=== PATIENT | female | born 1960 | race African-American/Black ===

== ENCOUNTER 2018-07-23 15:16 | Emergency (ER) | payer BC ==
[~2018-07-23] VITALS: Ht 167.6 cm; Wt 113.9 kg
[2018-07-23] MEDS ORDERED: IOHEXOL 350 MG/ML 100 ML VIAL. ONE (15:30)
[2018-07-23 15:48] LABS: BASO # 0.1 x10^3/uL (0.0-0.2); BASO % 1 % (0-3); EOS % 1 % (0-3); HEMATOCRIT 39.3 % (36.0-47.0); HEMOGLOBIN 12.7 g/dL (12.0-15.5); LYMPH # 1.8 x10^3/uL (1.0-4.8); LYMPH % 24 % (24-48); MEAN CORPUSCULAR HEMOGLOBIN 27 pg (25-35); MEAN CORPUSCULAR HGB CONC 32 g/dL (31-37); MEAN CORPUSCULAR VOLUME 84 fL (79-100); MONO # 0.5 x10^3/uL (0.0-1.1); MONO % 7 % (0-9); NEUT # 5.1 x10^3uL (1.8-7.7); NEUT % 68 % (31-73); PLATELET COUNT 378 x10^3/uL (140-400); RED BLOOD COUNT 4.66 x10^6/uL (3.50-5.40); RED CELL DISTRIBUTION WIDTH 13.7 % (11.5-14.5); WHITE BLOOD COUNT 7.4 x10^3/uL (4.0-11.0)
[2018-07-23 16:03] LABS: ALBUMIN 3.6 g/dL (3.4-5.0); ALBUMIN/GLOBULIN RATIO 0.8 (1.0-1.7); CREATININE 1.2 mg/dL (0.6-1.0); GFR 45.8; POTASSIUM 4.2 mmol/L (3.5-5.1); TOTAL BILIRUBIN 0.4 mg/dL (0.2-1.0)
[2018-07-23] MEDS: IOHEXOL 350 MG/ML 100 ML VIAL. IV ONE (16:25)
--- NOTE | 2018-07-23 16:25 | RAD ---
EXAM: CT HEAD WITHOUT CONTRAST. HISTORY: Aphasia, facial droop. TECHNIQUE: Computed tomography of the head was performed without intravenous contrast. COMPARISON: None. FINDINGS: There is no intracranial hemorrhage. Early loss of lai-white differentiation is suspected in the left striatum. The ventricles are normal in size and position. The visualized paranasal sinuses appear clear. The orbits are unremarkable. The temporal bones are unremarkable. The calvarium reveals no suspicious lesions. IMPRESSION: 1. No intracranial hemorrhage. 2. Early changes of an ischemic infarct are suspected in the left striatum. These findings were called to Dr. Valentino by Booker West on 07/23/2018 at 3:44 PM. *One or more of the following individualized dose reduction techniques were utilized for this examination: 1. Automated exposure control. 2. Adjustment of the mA and/or kV according to patient size. 3. Use of iterative reconstruction technique. Electronically signed by: Fabiola West MD (07/23/2018 4:22 PM) [facility]
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
[2018-07-23] MEDS ORDERED: ASPIRIN RECTAL 300 MG SUPP. PR ONE (16:30)
--- NOTE | 2018-07-23 16:37 | RAD ---
EXAM: 1. CTA HEAD WITH AND WITHOUT CONTRAST. 2. CTA NECK WITH AND WITHOUT CONTRAST. HISTORY: Aphasia, cerebrovascular accident. TECHNIQUE: Computed tomographic angiography of the head and neck was performed before and after the intravenous administration of iodinated contrast. Three-dimensional reconstructions were also performed. COMPARISON: Today's head CT. FINDINGS: Angiographic findings: There is a common origin of the left common carotid and brachiocephalic arteries, a variant of normal. There is no arch vessel stenosis. Both common carotid arteries course medially into the retropharyngeal territory throughout the majority of their course. Both carotid bifurcations are retropharyngeal. There is <50% stenosis at the origin of both internal carotid arteries secondary to a noncalcified plaquing. The external carotid systems are patent. The left vertebral artery is dominant and the right relatively diminutive. Both are patent with mild atherosclerotic irregularity. The proximal basilar artery is fenestrated. The posterior communicating arteries are the main supply to both posterior cerebral arteries. They are patent more distally. There are moderate atherosclerotic calcifications along both cavernous internal carotid arteries. These result in at least mild stenosis along the right cavernous portion. There is no clear stenosis on the left. No clear middle cerebral artery or branch occlusion is identified bilaterally. There is multifocal moderate to severe stenosis along the right A2 segment. The left anterior cerebral artery is patent. The anterior communicating artery is visualized. Nonangiographic findings: There is no intracranial hemorrhage. An early ischemic infarct is noted in the left caudate head and striatum. The ventricles are normal in size and position. The paranasal sinuses appear clear. The orbits are unremarkable. The temporal bones are unremarkable. Bone windows reveal no suspicious lesions. The lung apices demonstrate no acute abnormality. The parotid glands and submandibular glands are unremarkable. The thyroid gland demonstrates no suspicious lesions. The pharyngeal tonsils are somewhat enlarged bilaterally without a discrete mass. There are no pathologically enlarged lymph nodes. IMPRESSION: 1. Early infarct within the left caudate head and anterior basal ganglia. 2. No middle cerebral artery branch occlusion is appreciated. 3. Mild stenosis along the right cavernous sinus internal carotid artery. 4. Multifocal moderate to severe stenoses along the right A2 segment. 5. Both common carotid arteries and carotid bifurcations are retropharyngeal. 6. <50% stenosis at the origin of both cervical internal carotid arteries. PQRS Compliance Statement - Stenosis calculations for CT, MR and conventional angiography are based upon measurement of the distal ICA diameter in accordance with the NASCET methodology. Stenosis calculations for carotid ultrasound studies are derived from validated velocity criteria which are known to correlate with the NASCET methodology. *One or more of the following individualized dose reduction techniques were utilized for this examination: 1. Automated exposure control. 2. Adjustment of the mA and/or kV according to patient size. 3. Use of iterative reconstruction technique. Electronically signed by: Fabiola West MD (07/23/2018 4:35 PM) [facility]
--- NOTE | 2018-07-23 16:42 | RAD ---
AP chest. HISTORY: Code stroke, achalasia, facial droop AP view was taken of the chest. Lungs are clear. Heart is normal in size without heart failure. There is no effusion. IMPRESSION: 1. No acute chest disease. Electronically signed by: Torsten Hay MD (07/23/2018 4:40 PM) [id number]
[2018-07-23 16:44] LABS: AMPHETAMINE/METHAMPHETAMINE NEG (NEG); BARBITURATES NEG (NEG); BENZODIAZEPINES NEG (NEG); CANNABINOIDS NEG (NEG); COCAINE NEG (NEG); METHADONE NEG (NEG); OPIATES NEG (NEG); PHENCYCLIDINE NEG (NEG)
[2018-07-23] MEDS: ASPIRIN 81 MG TAB.CHEW PO ONE (16:53)
[2018-07-23 17:01] VITALS: BP 155/86
[2018-07-23 17:11] LABS: CLARITY,URINE TURBID; COLOR,URINE YELLOW; GLUCOSE,URINE >=1000 mg/dL (NEG)
[2018-07-23 17:12] LABS: BACTERIA,URINE MOD /HPF (0-FEW); BILIRUBIN,URINE NEG (NEG); NITRITE,URINE POS (NEG); SQUAMOUS EPITHELIAL CELL,UR FEW /LPF; UROBILINOGEN,URINE 0.2 mg/dL (0.2 mg/dL)
[2018-07-23] MEDS ORDERED: cefTRIAXone SODIUM 1 GM VIAL ONE (17:18)
[2018-07-23] MEDS ORDERED: IV NORMAL SALINE 50ML 50 ML ONE (17:19)
== END 2018-07-23 18:55 | disposition short-term general hospital (02) ==
LOC: ER 15:16
DX: I63.9 Cerebral infarction, unspecified (principal); R47.01 Aphasia; R29.810 Facial weakness; N39.0 Urinary tract infection, site not specified
CPT/HCPCS: 36415; 51702; 70450; 70496; 70498; 71045; 80053; 80307; 81001; 82947; 84484; 85025; 85610; 85730; 87086; 96365; 99285; G0480; J0696; Q9967

== ENCOUNTER 2018-07-31 08:30 | Emergency (ER) | payer BC ==
[~2018-07-31] VITALS: Ht 157.5 cm; Wt 107.0 kg
[2018-07-31] MEDS ORDERED: IV NORMAL SALINE 1,000ML 1,000 ML IV SCH (08:45)
--- NOTE | 2018-07-31 08:53 | PHYS DOC ---
Past History Past Medical History: No Pertinent History Past Surgical History: No Surgical History Smoking: Non-smoker Alcohol Use: None Drug Use: None Adult General Chief Complaint Chief Complaint: NEURO SYMPTOMS/DEFICITS HPI HPI Patient is a 58 year old female who presents with complaint of right-sided weak ness. Patient woke this morning with right-sided weakness and slurred speech. The patient was seen in the emergency department on July 23, 2018 and diagnosed with an acute left-sided basal ganglia CVA. Patient transferred to [place] for further care. The patient was released on July 25, 2018. According to the patient and the patient's , the patient has been waking up with right- sided weakness daily which seems to improve after patient has eaten breakfast. The patient had not been treated for any conditions until her most recent hospital stay. Was just started on blood pressure and diabetes medication. Patient states currently she is not having any symptoms of weakness. Currently denies pain. States that she has not noticed any increased weakness in her right upper and lower extremity since her stroke. Patient patient has been her concern about the daily occurrence of strokelike symptoms and thus came to the emergency department this morning for evaluation. Review of Systems Review of Systems Constitutional: Denies fever or chills [] Eyes: Denies change in visual acuity, redness, or eye pain [] HENT: Denies nasal congestion or sore throat [] Respiratory: Denies cough or shortness of breath [] Cardiovascular: Denies chest pain or edema[] GI: Denies abdominal pain, nausea, vomiting, bloody stools or diarrhea [] : Denies dysuria or hematuria [] Musculoskeletal: Denies back pain or joint pain [] Integument: Denies rash or skin lesions [] Neurologic: Right-sided weakness, slurred speech, denies sensory changes [] All other systems were reviewed and found to be within normal limits, except as documented in this note. Current Medications Current Medications Current Medications Medications (Trade) Dose Ordered Sig/Cristina Start Time Stop Time Status Last Admin Dose Admin Sodium Chloride 1,000 ml @ 125 mls/hr Q8H 07/31/18 08:45 07/31/18 16:44 UNV Allergies Allergies Allergies Coded Allergies Type Severity Reaction Last Updated Verified No Known Drug Allergies 07/23/18 No Physical Exam Physical Exam Constitutional: Well developed, well nourished, no acute distress, non-toxic appearance. [] HENT: Normocephalic, atraumatic, bilateral external ears normal, oropharynx moist, no oral exudates, nose normal. [] Eyes: PERRLA, EOMI, conjunctiva normal, no discharge. [] Neck: Normal range of motion, no tenderness, supple, no stridor. [] Cardiovascular:Heart rate regular rhythm, no murmur [] Lungs & Thorax: Bilateral breath sounds clear to auscultation [] Abdomen: Bowel sounds normal, soft, no tenderness, no masses, no pulsatile masses. [] Skin: Warm, dry, no erythema, no rash. [] Back: No tenderness, no CVA tenderness. [] Extremities: No tenderness, no cyanosis, no clubbing, ROM intact, no edema. [] Neurologic: Alert and oriented X 3, normal motor function, normal sensory function, no focal deficits noted. [] Psychologic: Affect normal, judgement normal, mood normal. [] Current Patient Data Vital Signs Vital Signs Date Time Temp Pulse Resp B/P (MAP) Pulse Ox O2 Delivery O2 Flow Rate FiO2 07/31/18 09:15 98.3 97 22 97 Room Air 07/31/18 08:40 141/90 (107) Lab Results Laboratory Tests Test 07/31/18 09:06 White Blood Count 6.9 x10^3/uL Red Blood Count 4.84 x10^6/uL Hemoglobin 13.2 g/dL Hematocrit 40.1 % Mean Corpuscular Volume 83 fL Mean Corpuscular Hemoglobin 27 pg Mean Corpuscular Hemoglobin Concent 33 g/dL Red Cell Distribution Width 13.5 % Platelet Count 443 x10^3/uL Neutrophils (%) (Auto) 71 % Lymphocytes (%) (Auto) 22 % Monocytes (%) (Auto) 6 % Eosinophils (%) (Auto) 0 % Basophils (%) (Auto) 1 % Neutrophils # (Auto) 4.9 x10^3uL Lymphocytes # (Auto) 1.5 x10^3/uL Monocytes # (Auto) 0.4 x10^3/uL Eosinophils # (Auto) 0.0 x10^3/uL Basophils # (Auto) 0.0 x10^3/uL Sodium Level 138 mmol/L Potassium Level 4.2 mmol/L Chloride Level 100 mmol/L Carbon Dioxide Level 28 mmol/L Anion Gap 10 Blood Urea Nitrogen 19 mg/dL Creatinine 1.1 mg/dL Estimated GFR (Cockcroft-Gault) 61.3 BUN/Creatinine Ratio 17 Glucose Level 79 mg/dL Calcium Level 10.1 mg/dL Magnesium Level 1.6 mg/dL Total Bilirubin 0.3 mg/dL Aspartate Amino Transf (AST/SGOT) 38 U/L Alanine Aminotransferase (ALT/SGPT) 29 U/L Alkaline Phosphatase 78 U/L Total Protein 8.2 g/dL Albumin 3.6 g/dL Albumin/Globulin Ratio 0.8 Current Medications Medications (Trade) Dose Ordered Sig/Cristina Route PRN Reason Start Time Stop Time Status Last Admin Dose Admin Sodium Chloride 1,000 ml @ 125 mls/hr Q8H IV 07/31/18 08:45 07/31/18 16:44 07/31/18 09:42 EKG EKG Interpreted by me: Heart rate 86, sinus rhythm, leftward axis, no acute ST/T- wave abnormalities present[] Radiology/Procedures Radiology/Procedures [place] [id number] IMAGING REPORT Signed PATIENT: DARRELL KYLE ACCOUNT: [id number] : 1960 LOCATION: ER AGE: 58 SEX: F EXAM STATUS: REG ER ORD. PHYSICIAN: CHARLETTE MEDINA MD REASON: right sided weakness this morning, currently resolved, recent CVA PROCEDURE: CT HEAD WO CONTRAST CT HEAD WO CONTRAST Clinical indications: Right-sided weakness this morning. Currently result. Recent CVA. COMPARISON: July 23, 2018. Technique: Noncontrast axial cross sectional scanning of the head was performed. PQRS compliance Statement One or more of the following individualized dose reduction techniques were utilized for this study: 1. Automated exposure control 2. Adjustment of the mA and/or kV according to patient size 3. Use of iterative reconstruction technique Findings: No acute intracranial hemorrhage or midline shift or mass-effect or hydrocephalus or extra-axial fluid collection is seen. There is an new finding of moderate edema involving the head of the caudate nucleus and anterior limb of the internal capsule in the anterior basal ganglia and the left side. This is consistent with a new infarct. No skull fracture or pneumocephalus is seen. No opacification of the mastoid sinuses or the paranasal sinuses is seen. The maxillary sinuses are not completely seen in this study. Impression: No acute intracranial hemorrhage is seen. New infarct on the left side as discussed above. Note-this critical result was discussed with the emergency room physician Dr. Charlette Medina at 9:24 AM on July 31, 2018. He stated that the symptoms are such that this should be considered a subacute infarct clinically. Electronically signed by: Radha Melo MD (07/31/2018 9:27 AM) [place] [id number] DICTATED AND SIGNED BY: RADHA MELO MD DATE: 07/31/18926 CC: CHARLETTE MEDINA MD; PCP,NO ~ [] Course & Med Decision Making Course & Med Decision Making Pertinent Labs and Imaging studies reviewed. (See chart for details) CT imaging was obtained in the emergency department. I spoke with Dr. Melo at 923 regarding critical findings of new CVA. Given symptoms were present upon awakening and have resolved at this time, this is consistent with a subacute infarct. Patient was noted to have evidence of mild aphasia during NIH scoring, giving her an NIH of 1 currently. The patient is not a candidate for use of TPA given recent infarct and low NIH score. Aspirin was withheld as patient took a full strength aspirin this morning prior to arrival. After speaking with the patient and family, we have agreed the patient will need to be transferred to [facility] for further evaluation and care. I spoke with Dr. Simons who will accept care of patient in hospital. Addendum at 1005: Despite accepting doctor at [facility], the nursing supervisor partial denture department call back and reported that there were no available beds for patient to be admitted at [facility]. Because of this, they were unable to accept the patient for transfer. After speaking with family, they agreed on pursuing transfer to [facility]. 1026: Spoke with Dr. Herron, neurologist, and Dr. Hancock, transfer physician, at [facility]. They have agreed to accept patient for transfer. Spoke with family regarding acceptance at [facility] and they are in agreement at time of disposition. Patient will be transferred by ground ambulance for further care.[] Dragon Disclaimer Dragon Disclaimer This electronic medical record was generated, in whole or in part, using a voice recognition dictation system. Departure Departure: Impression: Primary Impression: CVA (cerebral vascular accident) Disposition: 02 XFER SHT-TRM HOSP Condition: STABLE Referrals: PCP,NO (PCP) Problem Qualifiers Primary Impression: CVA (cerebral vascular accident) CVA mechanism: unspecified Qualified Codes: I63.9 - Cerebral infarction, unspecified CHARLETTE MEDINA MD Jul 31, 2018 08:53
--- NOTE | 2018-07-31 09:29 | RAD ---
CT HEAD WO CONTRAST Clinical indications: Right-sided weakness this morning. Currently result. Recent CVA. COMPARISON: July 23, 2018. Technique: Noncontrast axial cross sectional scanning of the head was performed. PQRS compliance Statement One or more of the following individualized dose reduction techniques were utilized for this study: 1. Automated exposure control 2. Adjustment of the mA and/or kV according to patient size 3. Use of iterative reconstruction technique Findings: No acute intracranial hemorrhage or midline shift or mass-effect or hydrocephalus or extra-axial fluid collection is seen. There is an new finding of moderate edema involving the head of the caudate nucleus and anterior limb of the internal capsule in the anterior basal ganglia and the left side. This is consistent with a new infarct. No skull fracture or pneumocephalus is seen. No opacification of the mastoid sinuses or the paranasal sinuses is seen. The maxillary sinuses are not completely seen in this study. Impression: No acute intracranial hemorrhage is seen. New infarct on the left side as discussed above. Note-this critical result was discussed with the emergency room physician Dr. Dennis Medina at 9:24 AM on July 31, 2018. He stated that the symptoms are such that this should be considered a subacute infarct clinically. Electronically signed by: Gray Melo MD (07/31/2018 9:27 AM) [id number]
[2018-07-31 09:30] LABS: ALBUMIN 3.6 g/dL (3.4-5.0); ALBUMIN/GLOBULIN RATIO 0.8 (1.0-1.7); CALCIUM 10.1 mg/dL (8.5-10.1); CREATININE 1.1 mg/dL (0.6-1.0); GFR 61.3; MAGNESIUM 1.6 mg/dL (1.8-2.4); POTASSIUM 4.2 mmol/L (3.5-5.1); TOTAL BILIRUBIN 0.3 mg/dL (0.2-1.0); TOTAL PROTEIN 8.2 g/dL (6.4-8.2)
[2018-07-31 09:48] LABS: BASO % 1 % (0-3); EOS % 0 % (0-3); HEMATOCRIT 40.1 % (36.0-47.0); HEMOGLOBIN 13.2 g/dL (12.0-15.5); LYMPH # 1.5 x10^3/uL (1.0-4.8); LYMPH % 22 % (24-48); MEAN CORPUSCULAR HEMOGLOBIN 27 pg (25-35); MEAN CORPUSCULAR HGB CONC 33 g/dL (31-37); MEAN CORPUSCULAR VOLUME 83 fL (79-100); MONO # 0.4 x10^3/uL (0.0-1.1); MONO % 6 % (0-9); NEUT # 4.9 x10^3uL (1.8-7.7); NEUT % 71 % (31-73); PLATELET COUNT 443 x10^3/uL (140-400); RED BLOOD COUNT 4.84 x10^6/uL (3.50-5.40); RED CELL DISTRIBUTION WIDTH 13.5 % (11.5-14.5); WHITE BLOOD COUNT 6.9 x10^3/uL (4.0-11.0)
[2018-07-31 11:48] VITALS: BP 125/82
--- NOTE | 2018-08-01 07:17 | EKG ---
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
--- NOTE | 2018-08-01 07:25 | EKG ---
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 (Measurements might be questionable) RI6.01 No previous ECG available for comparison
== END 2018-07-31 12:15 | disposition short-term general hospital (02) ==
LOC: ER 08:30
DX: I63.9 Cerebral infarction, unspecified (principal); R53.1 Weakness; R47.81 Slurred speech
CPT/HCPCS: 36415; 70450; 80053; 82947; 83735; 85025; 85610; 85730; 93005; 99285; J7030

== ENCOUNTER 2018-08-13 15:51 | Inpatient (IN) | payer BC ==
[~2018-08-13] VITALS: Ht 157.5 cm; Wt 104.5 kg
[2018-08-13] MEDS ORDERED: IV NORMAL SALINE 500ML 500 ML IV SCH (16:00)
--- NOTE | 2018-08-13 16:00 | PHYS DOC ---
Past History Past Medical History: CVA, Diabetes Past Surgical History: No Surgical History Smoking: Non-smoker Alcohol Use: None Drug Use: None Adult General Chief Complaint Chief Complaint: SYNCOPE HPI HPI Patient is a 58-year-old female presents after a syncopal episode. Patient was sitting, talking with family when she experienced this. She denies any chest pain or palpitations. EMS notes that her blood pressure decreased during o rthostatic vital signs. Her initial blood pressure was 120/80, and it went to 104/72 when standing. She notes that she's had decreased oral intake over the past 4 days., No appetite. No nausea or vomiting. No dysuria. No fever. No recent work in the heat.[] Review of Systems Review of Systems Constitutional: Denies fever or chills [] Eyes: Denies change in visual acuity, redness, or eye pain [] HENT: Denies nasal congestion or sore throat [] Respiratory: Denies cough or shortness of breath [] Cardiovascular: No chest pain or palpitations[] GI: Denies abdominal pain, nausea, vomiting, bloody stools or diarrhea [] : Denies dysuria or hematuria [] Musculoskeletal: Denies back pain or joint pain [] Integument: Denies rash or skin lesions [] Neurologic: Denies headache, focal weakness or sensory changes [] Endocrine: Denies polyuria or polydipsia [] All other systems were reviewed and found to be within normal limits, except as documented in this note. Allergies Allergies Allergies Coded Allergies Type Severity Reaction Last Updated Verified No Known Drug Allergies 07/23/18 No Physical Exam Physical Exam Constitutional: Well developed, well nourished, no acute distress, non-toxic appearance. [] HENT: Normocephalic, atraumatic, bilateral external ears normal, oropharynx moist, no oral exudates, nose normal. [] Eyes: PERRLA, EOMI, conjunctiva normal, no discharge. [] Neck: Normal range of motion, no tenderness, supple, no stridor. [] Cardiovascular:Heart rate regular rhythm, no murmur [] Lungs & Thorax: Bilateral breath sounds clear to auscultation [] Abdomen: Bowel sounds normal, soft, no tenderness, no masses, no pulsatile masses. [] Skin: Warm, dry, no erythema, no rash. [] Back: No tenderness, no CVA tenderness. [] Extremities: No tenderness, no cyanosis, no clubbing, ROM intact, no edema. [] Neurologic: Alert and oriented X 3, normal motor function, normal sensory function, no focal deficits noted. [] Psychologic: Affect normal, judgement normal, mood normal. [] EKG EKG EKG shows a sinus rhythm at 90 bpm, left axis at -20, QTC 436 ms, no ST elevations. Compared with EKG of 07/31/2018, no acute changes are noted. Interp reted by me at 1638.[] Radiology/Procedures Radiology/Procedures PROCEDURE: PORTABLE CHEST 1V Exam performed: One view chest. Indication: Syncope Date of Service: 08/13/2018 3:55 PM Comparison: One view chest from 07/23/2018. Single AP upright portable view chest findings: Cardiomediastinal silhouette is within limits of normal. No acute infiltrates, effusion or pneumothorax is detected. The bony structures are normal. Impression: No acute cardiopulmonary process is detected. [] Course & Med Decision Making Course & Med Decision Making Pertinent Labs and Imaging studies reviewed. (See chart for details) ED course and medical decision making: Patient arrived, was placed in bed, and tolerated exam well. She was started on IV fluids. Her orthostatic vital signs are noted to be 140/66 with a heart rate of 104 while sitting, and a heart rate of 129 and blood pressure 106/73 when standing. Believe this to be due to decreased appetite along with her worsening creatinine when compared with last month. Urinalysis is pending at the time of this dictation. Consultation was made with the hospitalist service for admission for continued IV hydration as well as further monitoring. Do not see any evidence of this being an acute stroke syndrome. No evidence of an acute coronary syndrome at this time.[] Dragon Disclaimer Dragon Disclaimer This electronic medical record was generated, in whole or in part, using a voice recognition dictation system. 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
--- NOTE | 2018-08-13 16:21 | RAD ---
Exam performed: One view chest. Indication: Syncope Date of Service: 08/13/2018 3:55 PM Comparison: One view chest from 07/23/2018. Single AP upright portable view chest findings: Cardiomediastinal silhouette is within limits of normal. No acute infiltrates, effusion or pneumothorax is detected. The bony structures are normal. Impression: No acute cardiopulmonary process is detected. Electronically signed by: Regla Varghese MD (08/13/2018 4:19 PM) [facility]
[2018-08-13 16:22] LABS: BASO # 0.1 x10^3/uL (0.0-0.2); BASO % 1 % (0-3); EOS % 0 % (0-3); HEMATOCRIT 34.7 % (36.0-47.0); LYMPH # 2.4 x10^3/uL (1.0-4.8); LYMPH % 23 % (24-48); MEAN CORPUSCULAR HEMOGLOBIN 27 pg (25-35); MEAN CORPUSCULAR HGB CONC 32 g/dL (31-37); MEAN CORPUSCULAR VOLUME 85 fL (79-100); MONO # 0.7 x10^3/uL (0.0-1.1); MONO % 6 % (0-9); NEUT # 7.5 x10^3uL (1.8-7.7); NEUT % 70 % (31-73); PLATELET COUNT 435 x10^3/uL (140-400); RED BLOOD COUNT 4.09 x10^6/uL (3.50-5.40); WHITE BLOOD COUNT 10.7 x10^3/uL (4.0-11.0)
[2018-08-13 16:42] LABS: ALBUMIN 3.6 g/dL (3.4-5.0); ALBUMIN/GLOBULIN RATIO 0.8 (1.0-1.7); CREATININE 1.5 mg/dL (0.6-1.0); GFR 42.9; POTASSIUM 4.1 mmol/L (3.5-5.1); TOTAL BILIRUBIN 0.4 mg/dL (0.2-1.0); TOTAL PROTEIN 8.3 g/dL (6.4-8.2)
[2018-08-13] MEDS: IV NORMAL SALINE 1,000ML 1,000 ML IV SCH (17:36)
[2018-08-13] MEDS ORDERED: ACETAMINOPHEN 325 MG TABLET PO PRN (17:45)
[2018-08-13] MEDS ORDERED: ONDANSETRON PF 4 MG/2 ML VIAL. IV PRN (17:45)
[2018-08-13] MEDS ORDERED: DEXTROSE 50% 25 GM / 50ML DISP.SYRIN. IV PRN (18:15)
[2018-08-13] MEDS ORDERED: ATOR20TA58 PO (18:36)
[2018-08-13] MEDS ORDERED: GLYB5TAB3 PO (18:36)
[2018-08-13] MEDS ORDERED: LISI1TAB3 PO (18:36)
[2018-08-13] MEDS ORDERED: ENAL2.5T PO (18:36)
[2018-08-13] MEDS ORDERED: METF500T16 PO (18:36)
[2018-08-13] MEDS ORDERED: CLOP75TA PO (18:36)
[2018-08-13] MEDS ORDERED: ASPI325T8 PO (18:36)
[2018-08-13 18:43] VITALS: BP 125/64
[2018-08-13] MEDS: glyBURIDE 5 MG TABLET PO SCH (18:51)
[2018-08-13] MEDS: metFORMIN 500 MG TABLET PO SCH (18:52)
[2018-08-13] MEDS: ATORVASTATIN CALCIUM 20 MG TABLET PO SCH (21:05)
[2018-08-13 23:00] VITALS: BP 147/70
[2018-08-14 06:00] VITALS: BP 175/74
[2018-08-14 06:00] LABS: BASO # 0.1 x10^3/uL (0.0-0.2); BASO % 1 % (0-3); EOS # 0.1 x10^3/uL (0.0-0.7); EOS % 1 % (0-3); HEMATOCRIT 29.1 % (36.0-47.0); HEMOGLOBIN 9.4 g/dL (12.0-15.5); LYMPH # 3.1 x10^3/uL (1.0-4.8); LYMPH % 35 % (24-48); MEAN CORPUSCULAR HEMOGLOBIN 27 pg (25-35); MEAN CORPUSCULAR HGB CONC 32 g/dL (31-37); MEAN CORPUSCULAR VOLUME 85 fL (79-100); MONO # 0.8 x10^3/uL (0.0-1.1); MONO % 9 % (0-9); NEUT # 4.7 x10^3uL (1.8-7.7); NEUT % 54 % (31-73); PLATELET COUNT 395 x10^3/uL (140-400); RED BLOOD COUNT 3.43 x10^6/uL (3.50-5.40); RED CELL DISTRIBUTION WIDTH 13.7 % (11.5-14.5); WHITE BLOOD COUNT 8.8 x10^3/uL (4.0-11.0)
[2018-08-14 06:10] LABS: CALCIUM 9.2 mg/dL (8.5-10.1); CREATININE 1.2 mg/dL (0.6-1.0); GFR 55.4; POTASSIUM 3.9 mmol/L (3.5-5.1)
[2018-08-14] MEDS: IV NORMAL SALINE 1,000ML 1,000 ML IV SCH ×2 (06:41→09:36)
[2018-08-14] MEDS: metFORMIN 500 MG TABLET PO SCH ×2 (07:53→17:00)
[2018-08-14] MEDS: glyBURIDE 5 MG TABLET PO SCH (07:53)
[2018-08-14] MEDS: CLOPIDOGREL BISULFATE 75 MG TABLET PO SCH (07:54)
[2018-08-14] MEDS ORDERED: ASPIRIN 325 MG TABLET PO SCH (09:00)
[2018-08-14] MEDS ORDERED: hydroCHLOROthiazide 12.5 MG CAPSULE PO SCH (09:00)
[2018-08-14] MEDS ORDERED: LISINOPRIL 10 MG TABLET PO SCH (09:00)
[2018-08-14] MEDS ORDERED: ENALAPRIL MALEATE 2.5 MG PO SCH (09:00)
[2018-08-14 10:29] VITALS: BP 142/62
[2018-08-14] MEDS: ASPIRIN ENTERIC COATED 81 MG TABLET.DR. PO SCH (10:30)
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
[2018-08-14 13:56] VITALS: BP 119/77
[2018-08-14 13:57] VITALS: BP_SYST 121; BP_SYST 132; BP_DIAS 76; BP_DIAS 78
[2018-08-14 19:15] VITALS: BP 128/68
[2018-08-14] MEDS: ATORVASTATIN CALCIUM 20 MG TABLET PO SCH (20:45)
[2018-08-14 23:05] VITALS: BP 156/78
--- NOTE | 2018-08-14 23:40 | PN ---
DATE: 08/14/2018 SUBJECTIVE: The patient is resting, slightly propped up in bed, in no apparent respiratory distress. She is awake, alert, has had no further syncopal episode; however, her main complaint is anorexia and poor appetite. OBJECTIVE: GENERAL: On examining her this morning, she looked pale, but no jaundice, cyanosis or thyromegaly. No jugular venous distension. No limb edema. VITAL SIGNS: Her heart rate was 76, blood pressure was 132/78, temperature was 98.3, respiratory rate was 20 and oxygen saturation was 98%. HEAD, EYES, EARS, NOSE AND THROAT: Normocephalic, atraumatic. NECK: Supple. HEART: Showed normal first and second heart sounds. No gallop, rub or murmur. CHEST: Clear to auscultation. No crepitation or rhonchi. ABDOMEN: Distended, soft, nontender. NEUROLOGIC: She was awake, alert, responding appropriately. All cranial nerves intact. She moves extremities without difficulty. Her intake over the last 24 hours was 2714, no output was recorded. LABORATORY DATA: As of this morning, her serum sodium was 139, potassium 3.9, chloride 103, bicarbonate 28, anion gap of 8, BUN 28, creatinine 1.2, estimated GFR was 55 mL per minute. Her glucose was 124, calcium was 9.2. Total bilirubin, AST, ALT, alkaline phosphatase were normal. She had 2 sets of cardiac enzymes that were negative. Her white cell count was 8800, hemoglobin 9.4, hematocrit 29, MCV 85 and platelet count of 395,000. ASSESSMENT: 1. Syncopal episode, likely due to dehydration and poor appetite. 2. Acute kidney injury, improving. Her creatinine came down from 1.5 to 1.2. 3. Type 2 diabetes seems to be well controlled. PLAN: To continue the IV fluid. We offered to start her on Marinol, but the patient reluctant to start it. We will continue with IV fluids tonight and repeat her labs tomorrow and we will decide on further management accordingly. REANNA SPANGLER MD DR: VENUS/eun JOB#: [id number] / [id number]
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
[2018-08-15 06:10] VITALS: BP 144/75
[2018-08-15 06:51] LABS: HEMOGLOBIN 9.3 g/dL (12.0-15.5); RED BLOOD COUNT 3.41 x10^6/uL (3.50-5.40); RED CELL DISTRIBUTION WIDTH 13.7 % (11.5-14.5); WHITE BLOOD COUNT 9.6 x10^3/uL (4.0-11.0)
[2018-08-15 07:04] LABS: ALBUMIN/GLOBULIN RATIO 0.8 (1.0-1.7); CALCIUM 9.3 mg/dL (8.5-10.1); CREATININE 0.9 mg/dL (0.6-1.0); GFR 77.3; POTASSIUM 3.6 mmol/L (3.5-5.1); TOTAL BILIRUBIN 0.3 mg/dL (0.2-1.0); TOTAL PROTEIN 6.9 g/dL (6.4-8.2)
[2018-08-15] MEDS ORDERED: DRONABINOL 2.5 MG CAPSULE PO SCH ×2 (07:30→17:00)
[2018-08-15] MEDS: ASPIRIN ENTERIC COATED 81 MG TABLET.DR. PO SCH ×2 (08:00→08:07)
[2018-08-15] MEDS: CLOPIDOGREL BISULFATE 75 MG TABLET PO SCH ×2 (08:07→08:13)
[2018-08-15] MEDS: LISINOPRIL 5 MG TABLET. PO SCH (08:07)
[2018-08-15 11:22] VITALS: BP 140/70
[2018-08-15 16:15] VITALS: BP 146/65
[2018-08-15] MEDS: DRONABINOL 2.5 MG CAPSULE PO SCH (17:02)
[2018-08-15 19:48] VITALS: BP 135/70
[2018-08-15] MEDS: ATORVASTATIN CALCIUM 20 MG TABLET PO SCH (20:53)
--- NOTE | 2018-08-16 04:08 | PN ---
DATE: 08/15/2018 SUBJECTIVE: The patient denies any new medical or neurological complaints. She has not had any headaches, visual disturbances, or fainting spells. She has been ups and downs walking outside the room without any dizziness. She denies headaches or visual disturbances. OBJECTIVE: GENERAL: Obese female, not in acute distress. She weighs 103.9 pounds. VITAL SIGNS: Blood pressure 144/75, respiratory rate 18, pulse is 77, temperature 97.6, oxygen saturation 96% on room air. HEENT: Normocephalic, atraumatic, otherwise unremarkable. NECK: Supple. Negative for carotid bruit, lymphadenopathy or thyromegaly. LUNGS: Clear to A and P. CARDIOVASCULAR: Regular rate and rhythm, normal S1, S2. There is no S3, S4, or murmur. ABDOMEN: Soft. Bowel sounds positive. EXTREMITIES: Negative for cyanosis, clubbing or pitting edema. NEUROLOGICAL EXAM: Mental Status: The patient is alert and oriented x3. Speech is fluent. There is no language dysfunction. Cranial nerves are intact. No focal motor or sensory deficit. Deep tendon reflexes were symmetric and active without pathologic responses. Gait and coordination are normal. LABORATORY DATA: CBC revealed white blood cells of 9.6 thousand, hemoglobin 9.3, hematocrit 29, platelet count 388. Chemistry revealed sodium of 138, potassium 3.6, chloride 103, CO2 28, BUN 12, creatinine 0.9, glucose 64. Liver enzymes are normal. IMPRESSION: 1. Syncope, probably due to severe dehydration -- no recurrence. 2. Multiple medical problems include urinary tract infections, obesity, renal insufficiency due to dehydration, hypertension, anemia, diabetes mellitus and history of stroke. The patient is neurologically stable. RECOMMENDATIONS: Continue with current management initiated by . ____. M Pola HERNANDEZ MD DR: SYLWIA/eun JOB#: [id number] / [id number]
--- NOTE | 2018-08-16 04:40 | PN ---
DATE: 08/15/2018 SUBJECTIVE: The patient is resting slightly propped up in bed, in no apparent distress, awake, alert, denied any complaints. Her appetite, she said that she is eating more. We did start her on Marinol yesterday and her glyburide was discontinued; however, she continued to have low blood sugar. In fact, her blood sugar this morning was only 64. PHYSICAL EXAMINATION: GENERAL: When I examined her, she looked pale, but no jaundice, cyanosis, or thyromegaly. No jugular venous distension. No limb edema. VITAL SIGNS: Her heart rate was 77, blood pressure was 144/75, temperature was 97.6, respiratory rate was 18, and oxygen saturation was 96%. HEAD, EYES, EARS, NOSE, AND THROAT: Showed normocephalic, atraumatic. NECK: Supple. HEART: Showed normal first and second heart sounds. No gallop, rub, or murmur. CHEST: Clear to auscultation. No crepitation or rhonchi. ABDOMEN: Distended, soft, nontender. NEUROLOGIC: She is awake, alert, responding appropriately. All cranial nerves intact. She moves extremities without difficulty. She has no neurological deficit from her recent left-sided basal ganglia infarct. Her intake over the last 24 hours was 2714, output was recorded. LABORATORY DATA: Her lab work this morning showed a serum sodium 138, potassium 3.6, chloride 103, bicarbonate 28, anion gap of 7, BUN 12, creatinine 0.9, estimated GFR was 77 mL per minute. Her glucose was 64, calcium was 9.3. Total bilirubin, AST, ALT, alkaline phosphatase were normal. Total protein was 6.9, albumin 3. Her white cell count was 9.6, hemoglobin 9.3, hematocrit 29, MCV 85, and platelet count of 388,000. Her sedimentation rate was 60 mm per hour. Her nasal screen for MRSA by PCR was negative. ASSESSMENT: 1. Syncopal episode, likely dehydration, poor appetite. 2. Acute kidney injury, improving. Her creatinine is down from 1.5 to 0.9. 3. Type 2 diabetes mellitus with prolonged hypoglycemia likely due to oral hypoglycemic agent that was discontinued. PLAN: My plan is as long as the patient continued to have low blood sugar we will observe her for another 24 hours and probably discharge her only on metformin and maybe a small dose of Amaryl instead of Glyburide. REANNA SPANGLER MD DR: VENUS/eun JOB#: [id number] / [id number]
[2018-08-16 06:05] VITALS: BP 145/85
[2018-08-16 06:40] LABS: CALCIUM 9.2 mg/dL (8.5-10.1); CREATININE 0.8 mg/dL (0.6-1.0); GFR 88.5; POTASSIUM 4.2 mmol/L (3.5-5.1)
[2018-08-16] MEDS: ASPIRIN ENTERIC COATED 81 MG TABLET.DR. PO SCH (08:03)
[2018-08-16] MEDS: CLOPIDOGREL BISULFATE 75 MG TABLET PO SCH (08:03)
[2018-08-16] MEDS: LISINOPRIL 5 MG TABLET. PO SCH (08:03)
[2018-08-16] MEDS: DRONABINOL 2.5 MG CAPSULE PO SCH (08:03)
[2018-08-16 08:20] VITALS: BP 140/81
[2018-08-16 11:00] VITALS: BP 145/83
--- NOTE | 2018-08-17 00:23 | DS ---
DATE OF DISCHARGE: 08/16/2018 HISTORY OF PRESENT ILLNESS: The patient is a 58-year-old -[place]ong[place] female patient who was admitted on 08/13/2018 with syncopal episode. She apparently was sitting and talking to family and apparently had had a syncopal episode. Emergency medical personnel stated that her blood pressure decreased on standing from 120 to 104 and she noted that she has had decreased oral intake over the last 4 days with poor appetite, but no nausea, no vomiting, no diarrhea, no fever or recent work in the heat. She was evaluated in the Emergency Room and was found to have syncope, likely due to dehydration and acute renal insufficiency as well as diabetes. She was treated with IV fluid and we held all her antihypertensive medications. Her kidney function has gradually improved and her creatinine came down from 1.5 to 0.8. She was on metformin and glyburide and apparently her blood sugar had been low and in fact when she came was only 34 and her blood sugar has been steadily in the low side and probably because of impaired kidney function and longer acting glyburide that made worse by the fact that her kidney function has worsened, so we held her metformin and her oral hypoglycemic agent and had no further episode of syncope, dizziness or lightheadedness. Her blood sugar has improved today. In fact, her blood sugar this morning was 161 and this afternoon was 132 and her intake has gradually improved. We did start her on Marinol and a decision was made to discharge her home to continue with Amaryl 1 mg only, continue with Marinol 2.5 mg twice a day and I discontinued her enalapril, continue with lisinopril as well as hydrochlorothiazide. PHYSICAL EXAMINATION: GENERAL: When I saw her this afternoon, she looked well and was clearly in no apparent respiratory distress. There is no pallor, jaundice or cyanosis. No lymphadenopathy. No thyromegaly. No jugular venous distension. No lower limb edema. VITAL SIGNS: Her heart rate was 83, blood pressure 140/81, temperature was 97.7, respiratory rate was 16, and oxygen saturation was 96%. HEAD, EYES, EARS, NOSE AND THROAT: Showed normocephalic, atraumatic. NECK: Supple. HEART: Showed normal first and second heart sounds. No gallop, rub or murmur. CHEST: Clear to auscultation. No crepitation or rhonchi. ABDOMEN: Distended, soft, nontender. No guarding or rigidity. No organomegaly. All hernial orifice intact. Bowel sounds normal. NEUROLOGIC: She was awake, alert, responding appropriately. All other cranial nerves intact. She moves extremities without difficulty. She ambulates without assistance or assistive devices. Her intake over the last 24 hours was 3200, no output was recorded. LABORATORY DATA: Her lab work this morning showed a white cell count 9600, hemoglobin 9, hematocrit 29, MCV 85 and platelet count 388,000. Her serum sodium was 138, potassium 4.2, chloride 104, bicarbonate 26, anion gap of 8, BUN 10, creatinine 0.8, estimated GFR was 88 mL per minute. Her glucose 131, calcium was 9.2. Her nasal screen for MRSA PCR was negative. DISCHARGE MEDICATIONS: She was discharged home to continue on aspirin 325 mg once a day, atorvastatin calcium 20 mg at bedtime, Plavix 75 mg once a day, lisinopril/hydrochlorothiazide 10/12.5 one tablet once a day, metformin 500 mg twice a day and Amaryl 1 mg once a day as well as Marinol 2.5 mg twice a day. FINAL DISCHARGE DIAGNOSES: Acute kidney injury, improved with her creatinine came down from 1.5 to 0.8; syncopal episode, likely dehydration with resultant acute kidney injury; persistent hypoglycemia likely due to long-acting oral hypoglycemic agent; metformin and glyburide that was discontinued. Other medical problems include hypertension, hyperlipidemia and left middle cerebral artery territory infarct with right-sided hemiplegia. REANNA SPANGLER MD DR: VENUS/eun JOB#: [id number] / [id number]
--- NOTE | 2018-08-22 08:22 | EKG ---
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
== END 2018-08-16 14:30 | disposition home or self-care (01) | DRG 640 ==
LOC: ER 15:51 → ICU 17:59
PROVIDERS: ADMIT Internal Medicine; ATTEND Internal Medicine
DX: E86.0 Dehydration (principal); N17.0 Acute kidney failure with tubular necrosis; I69.351 Hemiplegia and hemiparesis following cerebral infarction affecting right dominant side; Z68.41 Body mass index [BMI] 40.0-44.9, adult; D64.9 Anemia, unspecified; E11.65 Type 2 diabetes mellitus with hyperglycemia; E11.649 Type 2 diabetes mellitus with hypoglycemia without coma; E66.01 Morbid (severe) obesity due to excess calories; E78.5 Hyperlipidemia, unspecified; I10 Essential (primary) hypertension; I95.1 Orthostatic hypotension; R56.9 Unspecified convulsions; Z79.02 Long term (current) use of antithrombotics/antiplatelets; Z79.82 Long term (current) use of aspirin; Z79.84 Long term (current) use of oral hypoglycemic drugs; Z81.8 Family history of other mental and behavioral disorders; Z82.49 Family history of ischemic heart disease and other diseases of the circulatory system; Z83.3 Family history of diabetes mellitus; Z79.899 Other long term (current) drug therapy; Z79.4 Long term (current) use of insulin
CPT/HCPCS: 36415; 71045; 80048; 80053; 82947; 84484; 85025; 85027; 85651; 86140; 87641; 93005; 96360; J7040; Q0167; 99285-25; J7030